=== PATIENT | male | born 1975 | race Caucasian/White ===

== ENCOUNTER 2017-05-20 07:22 | Emergency (ER) | payer OTHER ==
[~2017-05-20] VITALS: Ht 177.8 cm; Wt 97.3 kg
[2017-05-20 07:25] VITALS: TEMP 36.7; Ht 177.8 cm; Wt 97.3 kg
[2017-05-20] MEDS ORDERED: IBUPROFEN 600 MG TAB PO STA (07:38)
--- NOTE | 2017-05-20 07:40 | EMERGENCY ROOM VISIT NOTE ---
ED Visit Note First contact with patient: 07:28 CHIEF COMPLAINT: Shoulder pain HISTORY OF PRESENT ILLNESS: This 42-year-old male patient presents to the emergency department ambulatory complaining of pain in the left shoulder after injuring it today at work. He states that he was moving a heavy cart and it started to tip over and he went to grab it and injured his left shoulder. There is significant limitation of motion of the arm because of the pain. The patient did not hear a cracking the sound at the time of the injury. There is no weakness of the arm. The pain is moderate, constant and increases with motion of the hand and arm. The patient states the pain is severe and 8/10. The patient has taken nothing for relief of the pain. The patient had a partial tail of his rotator cuff in the shoulder 15 years ago and had conservative management. No numbness or tingling. Patient denies neck or back pain. No chest pain or shortness of breath. No abdominal pain or nausea/vomiting. No cough. REVIEW OF SYSTEMS: A 6 system review of systems was performed with positives and pertinent negatives in the HPI. ALLERGIES: No known drug allergies MEDICATIONS: Patient denies PMH: Patient denies SOCIAL HISTORY: The patient lives in [place]. He works here during the week and stays at an apartment. PHYSICAL EXAM: Vital Signs: Reviewed nurse's notes, vital signs stable. GENERAL : This is a 42-year-old male, in no acute distress, but appears to be in pain, well-developed, well-nourished. MUSCULOSKELETAL: There is no deformity in the contour of the left shoulder and there are no wanda deformities noted. There is no sulcus sign. There is tenderness over the the anterior shoulder. The patient' s range of motion is markedly decreased. Supraspinatus strength 5/5. NEURO: The patient is alert and oriented to person, place, and time. Normal sensation to light and sharp touch. Capillary refill less than 2 seconds. Radial and brachial pulse 2+. EMERGENCY DEPARTMENT COURSE: I examined the patient. An X-ray of the left shoulder was reviewed by myself and radiology and shows degenerative change of the acromioclavicular joint but no other acute abnormality. The patient was placed in a sling. He was given 600 mg ibuprofen which did not help. He was given one [place]. 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 The patient has had an injury to that shoulder in the past which was work-related. He states that he will follow up with a Worker's Compensation doctor for further evaluation and management. He should return with any worsening symptoms. LEFT SHOULDER MIN 2 VIEWS ROUTINE HISTORY: 42-year-old male presents with acute left shoulder pain with prior rotator cuff injury. COMPARISON: None available. TECHNIQUE: 3 views of the left shoulder. FINDINGS: No acute fracture or dislocation. Mild degenerative changes are present within the AC joint. Negative for radiopaque foreign body. Imaged left lung field appears clear. IMPRESSION: 1. No acute fracture or dislocation. 2. Mild degenerative changes of the left AC joint. Current/Historical Medications Scheduled PRN Hydrocodone/Acetaminophen 5MG/325MG ([place] 5MG/325MG), 1 TABLET PO Q6 PRN for Pain Allergies Coded Allergies: No Known Allergies (Unverified , 05/20/17) Vital Signs Date Time Temp Pulse Resp B/P (MAP) Pulse Ox O2 Delivery O2 Flow Rate FiO2 05/20/17 08:48 52 16 138/97 95 05/20/17 07:25 36.7 80 16 125/87 96 Room Air Medications Administered Medications (Trade) Dose Ordered Sig/Shraddha Route Start Time Stop Time Status Last Admin Dose Admin Ibuprofen (Motrin Tab) 600 mg NOW STAT PO 05/20/17 07:38 05/20/17 07:39 DC 05/20/17 07:43 600 MG Acetaminophen/ Hydrocodone Bitart ([place] 5/325 Tab) 1 tab ONE STAT PO 05/20/17 08:42 05/20/17 08:43 DC 05/20/17 08:46 1 TAB Departure Information Impression Primary Impression: Shoulder injury Additional Impression: Work related injury Dispostion Home / Self-Care Condition GOOD Prescriptions Hydrocodone/Acetaminophen 5MG/325MG ([place] 5MG/325MG) Tab 1 TABLET PO Q6 Y for Pain, #10 TAB For Initial Treatment Prov: Lisa Lopez PA-C 05/20/17 Referrals No Doctor, Assigned (PCP) Forms HOME CARE DOCUMENTATION FORM, IMPORTANT VISIT INFORMATION, Work Instructions Additional Instructions: Off work until cleared by worker's compensation/ orthorpedics Patient Instructions ED Torn Rotator Cuff, [facility] Additional Instructions Rest the arm in a sling until seen by an employer proved Worker's Compensation doctor. Contact them today for a follow-up appointment. Motrin 600 mg every 6-8 hours for moderate pain. [place] 1 tablet every 6 hours if needed for worse pain. Do not drink or drive while taking [place] and do not take with Tylenol. Return with any worsening symptoms Problem Qualifiers
--- NOTE | 2017-05-20 08:11 | DIAGNOSTIC IMAGING REPORT ---
LEFT SHOULDER MIN 2 VIEWS ROUTINE HISTORY: 42-year-old male presents with acute left shoulder pain with prior rotator cuff injury. COMPARISON: None available. TECHNIQUE: 3 views of the left shoulder. FINDINGS: No acute fracture or dislocation. Mild degenerative changes are present within the AC joint. Negative for radiopaque foreign body. Imaged left lung field appears clear. IMPRESSION: 1. No acute fracture or dislocation. 2. Mild degenerative changes of the left AC joint. Electronically signed by: Jeison Chaney 05/20/2017 8:09 AM Dictated Date/Time: 05/20/2017 8:07 AM
[2017-05-20] MEDS ORDERED: HYDROCODONE/ACETAMOPHEN 5/325MG TAB PO STA (08:42)
[2017-05-20] MEDS ORDERED: HYDR-5688 PO (08:44)
[2017-05-20 08:48] VITALS: BP 138/97; PULSE 52; O2SAT 95
== END 2017-05-20 09:02 | disposition home or self-care (01) ==
LOC: C.EDB 07:24 → C.EDA 09:02
DX: S49.92XA Unspecified injury of left shoulder and upper arm, initial encounter (principal); X50.0XXA Overexertion from strenuous movement or load, initial encounter; Y99.0 Civilian activity done for income or pay; Y92.89 Other specified places as the place of occurrence of the external cause; Y93.89 Activity, other specified